=== PATIENT | female | born 1985 | race Caucasian/White ===

== ENCOUNTER 2021-12-09 05:21 | Inpatient (IN) | payer BC, MEDICAID ==
[2021-12-09] MEDS ORDERED: Acetaminophen 500 MG Tab PO ONE (05:35)
[2021-12-09] MEDS ORDERED: Celecoxib 200 MG Cap PO ONE (05:35)
[2021-12-09] MEDS ORDERED: Scopolamine 1.5 MG Transdermal Patch TOP SCH (05:35)
[2021-12-09] MEDS ORDERED: Dextrose 5%-Lactated Ringers 1,000 ML IV SCH (05:35)
[2021-12-09 06:41] LABS: ESTIMATED GFR 67 mL/min (>60)
[2021-12-09] MEDS ORDERED: cefOXitin 2 GM Vial ONE (06:59)
[2021-12-09] MEDS ORDERED: cefOXitin 2 GM in Sodium Chloride 0.9% 50 ML IV ONE (07:00)
[2021-12-09] MEDS ORDERED: fentaNYL 250 MCG/5 ML SDV ONE (07:08)
[2021-12-09] MEDS ORDERED: Propofol 200 MG/20 ML SDV ONE (07:09)
[2021-12-09] MEDS ORDERED: Succinylcholine 200 MG/10 ML MDV ONE (07:09)
[2021-12-09] MEDS ORDERED: Rocuronium 50 MG/5 ML Vial ONE (07:09)
[2021-12-09] MEDS ORDERED: Ondansetron 4 MG/2 ML SDV ONE (07:09)
[2021-12-09] MEDS ORDERED: Glycopyrrolate 0.2 MG/ML 5 ML MDV ONE (07:09)
[2021-12-09] MEDS ORDERED: Neostigmine Methylsulfate 1 MG/ML 5 ML Syringe ONE (07:09)
[2021-12-09] MEDS ORDERED: Dexamethasone 4 MG/ML SDV ONE (07:09)
[2021-12-09] MEDS ORDERED: Lactated Ringers 1,000 ML ONE (07:11)
[2021-12-09] MEDS ORDERED: Ketamine 500 MG/5 ML MDV IV SCH (07:30)
[2021-12-09] MEDS ORDERED: Ketamine 19 MG in Sodium Chloride 0.9% 19.81 ML IV SCH (07:30)
[2021-12-09] MEDS ORDERED: Sodium Chloride 0.9% 20 ML ONE (07:51)
[2021-12-09] MEDS ORDERED: Glucagon,Human Recombinant 1 MG Vial ONE (08:28)
[2021-12-09] MEDS ORDERED: fentaNYL 100 MCG/2 ML SDV ONE (08:42)
[2021-12-09] MEDS ORDERED: Cyclobenzaprine 10 MG Tab PO PRN (10:11)
[2021-12-09] MEDS: Ondansetron 4 MG/2 ML SDV IVPUSH PRN ×2 (10:45→22:57)
[2021-12-09] MEDS ORDERED: HYDROmorphone 0.5 MG/0.5 ML Syringe IVPUSH PRN (11:00)
[2021-12-09] MEDS ORDERED: Labetalol 20 MG/4 ML Syringe IVPUSH PRN (11:00)
[2021-12-09] MEDS ORDERED: Metoclopramide 10 MG/2 ML SDV IVPUSH PRN (11:00)
[2021-12-09] MEDS ORDERED: HYDROmorphone 1 MG/ML Syringe IV PRN (11:00)
[2021-12-09] MEDS ORDERED: hydrOXYzine HCL 100 MG/2 ML SDV IM PRN (11:00)
[2021-12-09] MEDS ORDERED: traMADol 50 MG Tab PO PRN (11:00)
[2021-12-09] MEDS ORDERED: Acetaminophen 500 MG Tab PO PRN (11:00)
[2021-12-09] MEDS ORDERED: diphenhydrAMINE 50 MG/ML SDV IVPUSH PRN (11:00)
[2021-12-09] MEDS: cefOXitin 2 GM in Sodium Chloride 0.9% 50 ML IV SCH ×2 (13:51→21:37)
[2021-12-09] MEDS: Acetaminophen 500 MG Tab PO SCH ×2 (13:54→21:38)
[2021-12-09] MEDS: busPIRone 10 MG Tab PO SCH ×2 (13:55→21:37)
[2021-12-09] MEDS: oxyCODONE 5 MG Tab PO PRN (13:59)
[2021-12-09] MEDS: Dextrose 5%-Lactated Ringers 1,000 ML IV SCH (13:59)
[2021-12-09] MEDS ORDERED: Pantoprazole 40 MG Vial IVPUSH SCH (14:00)
[2021-12-09] MEDS: Heparin Sodium 5,000 Units/ML Vial SUBCUT SCH (16:43)
[2021-12-09] MEDS: MVI, Adult with Vitamin K 10 ML, Thiamine 200 MG, Zinc/Copper/Manganese/Selenium 1 ML i... IV SCH ×4 (16:43)
[2021-12-09] MEDS: Amitriptyline 25 MG Tab PO SCH (21:38)
[2021-12-10] MEDS: Dextrose 5%-Lactated Ringers 1,000 ML IV SCH ×2 (00:38→07:27)
[2021-12-10] MEDS: cefOXitin 2 GM in Sodium Chloride 0.9% 50 ML IV SCH ×2 (02:42→08:31)
[2021-12-10] MEDS: oxyCODONE 5 MG Tab PO PRN ×2 (04:59→10:32)
[2021-12-10] MEDS: Heparin Sodium 5,000 Units/ML Vial SUBCUT SCH ×2 (05:00→15:26)
[2021-12-10] MEDS ORDERED: Iopamidol 510 MG/ML 50 ML SDV PO ONE (05:27)
[2021-12-10] MEDS: Acetaminophen 500 MG Tab PO SCH ×3 (06:04→22:31)
[2021-12-10] MEDS ORDERED: Ondansetron 4 MG Tab.DIS PO PRN (07:46)
[2021-12-10] MEDS ORDERED: hydrOXYzine HCl 25 MG Tab PO PRN (07:50)
[2021-12-10] MEDS ORDERED: Dextrose 5%-Lactated Ringers 1,000 ML IV SCH (08:00)
[2021-12-10] MEDS: busPIRone 10 MG Tab PO SCH ×3 (08:32→22:31)
[2021-12-10] MEDS: Desvenlafaxine Succinate 25 MG TAB.ER PO SCH (08:32)
[2021-12-10] MEDS: Celecoxib 200 MG Cap PO SCH ×2 (08:32→22:32)
[2021-12-10] MEDS: SCOPOLAMINE PATCH CHECK TOP SCH (08:33)
[2021-12-10] MEDS ORDERED: Venlafaxine 75 MG Cap.ER PO SCH (09:00)
[2021-12-10] MEDS: Pantoprazole 40 MG Tab.CR PO SCH (10:33)
[2021-12-10] MEDS: MVI, Adult with Vitamin K 10 ML, Thiamine 200 MG, Zinc/Copper/Manganese/Selenium 1 ML i... IV SCH ×4 (15:26)
[2021-12-10] MEDS: Amitriptyline 25 MG Tab PO SCH (22:31)
[2021-12-11] MEDS: Heparin Sodium 5,000 Units/ML Vial SUBCUT SCH (03:48)
[2021-12-11] MEDS: Acetaminophen 500 MG Tab PO SCH (06:56)
[2021-12-11] MEDS: busPIRone 10 MG Tab PO SCH (08:30)
[2021-12-11] MEDS: Pantoprazole 40 MG Tab.CR PO SCH (08:30)
[2021-12-11] MEDS: Celecoxib 200 MG Cap PO SCH (08:31)
[2021-12-11] MEDS: Desvenlafaxine Succinate 25 MG TAB.ER PO SCH (08:31)
[2021-12-11] MEDS: SCOPOLAMINE PATCH CHECK TOP SCH (08:33)
[2021-12-11] MEDS ORDERED: Cyanocobalamin (Vitamin B12) 1,000 MCG/ML SDV IM ONE (09:00)
== END 2021-12-11 10:00 | disposition home or self-care (01) | DRG 403 ==
LOC: UNDOADMIN 05:21 → JP.MS 05:21 → JP.SDSSCHI 05:21 → JP.SDS 05:22 → EDSTATUS 08:45 → JP.MS 09:00
PROVIDERS: ADMIT Surgery; ATTEND Surgery
PROC: 0DB64Z3 Excision of Stomach, Percutaneous Endoscopic Approach, Vertical (ICD-10-PCS; principal; 2021-12-09)
PROC: 0FB24ZX Excision of Left Lobe Liver, Percutaneous Endoscopic Approach, Diagnostic (ICD-10-PCS; 2021-12-09)
PROC: 0BQT4ZZ Repair Diaphragm, Percutaneous Endoscopic Approach (ICD-10-PCS; 2021-12-09)
DX: E66.01 Morbid (severe) obesity due to excess calories (principal); F32.A Depression, unspecified; F41.9 Anxiety disorder, unspecified; R16.0 Hepatomegaly, not elsewhere classified; K44.9 Diaphragmatic hernia without obstruction or gangrene; Z79.899 Other long term (current) drug therapy; Z87.891 Personal history of nicotine dependence
CPT/HCPCS: 36415; 74240; 74240-26; 80048; 80053; 81025; 83735; 84100; 85027; 86850; 86900; 86901; A9270-GY; C9113; J0171; J0330; J0694; J1100; J1170; J1200; J1610; J1644; J2405; J2704; J2710; J2765; J2795; J3010; J3410; J3411; J3420; J3490; J7120; J7121; Q0162